=== PATIENT | male | born 1945 | race Caucasian/White ===

== ENCOUNTER 2019-03-15 04:44 | Emergency (ER) | payer OTHER ==
[2019-03-15 05:05] LABS: ADD MAN DIFF? NO
[2019-03-15 05:06] LABS: BASOPHILS % 0.2 % (0.0-2.0); EOSINOPHILS # 0.2 10^3/ul (0.0-0.5); EOSINOPHILS % 1.2 % (0.0-7.0); HEMATOCRIT 39.6 % (42.0-52.0); HEMOGLOBIN 13.4 g/dl (14.0-18.0); LYMPHOCYTES # 1.6 10^3/ul (0.8-2.9); LYMPHOCYTES % 10.8 % (15.0-51.0); MEAN CORPUSCULAR HGB CONC 33.8 g/dl (32.0-37.0); MEAN CORPUSCULAR VOLUME 94.5 fl (82.0-101.0); MEAN PLATELET VOLUME 11.8 fl (7.4-10.4); MONOCYTE # 0.8 10^3/ul (0.3-0.9); MONOCYTES % 5.5 % (0.0-11.0); PLATELET COUNT 164 10^3/UL (140-415); RED BLOOD COUNT 4.19 10^6/ul (4.70-6.10); RED CELL DISTRIBUTION WIDTH 13.7 % (11.5-14.5)
[2019-03-15 05:06] LABS: WHITE BLOOD COUNT 14.7 10^3/ul (4.8-10.8)
[2019-03-15 05:25] LABS: ALANINE AMINOTRANSFERASE 45 IU/L (13-69); ALBUMIN 4.6 g/dl (3.3-4.9); ALBUMIN/GLOBULIN RATIO 1.84; ALKALINE PHOSPHATASE 52 IU/L (42-121); ANION GAP 10 (5-13); ASPARTATE AMINO TRANSFERASE 34 IU/L (15-46); BILIRUBIN,INDIRECT 0.4 mg/dl (0-1.1); BILIRUBIN,TOTAL 0.4 mg/dl (0.2-1.3); BLOOD UREA NITROGEN 27 mg/dl (7-20); CALCIUM 9.7 mg/dl (8.4-10.2); CARBON DIOXIDE 32 mmol/L (21-31); CHLORIDE 97 mmol/L (97-110); CREATININE 0.72 mg/dl (0.61-1.24); GLUCOSE 228 mg/dl (70-220); LIPASE 185 U/L (23-300); POTASSIUM 4.3 mmol/L (3.5-5.1); SODIUM 139 mmol/L (135-144); TOTAL PROTEIN 7.1 g/dl (6.1-8.1)
[2019-03-15 05:36] LABS: TROPONIN-I < 0.012 ng/ml (0.000-0.120)
[2019-03-15] MEDS: morphine 2 MG INJ IV (06:38)
[2019-03-15] MEDS: ONDANSETRON 4 MG INJ IV (06:38)
[2019-03-15] MEDS: SOD CHLORIDE 0.9% 1,000 ML IV (06:38)
[2019-03-15] MEDS: IOHEXOL 300MG/ML 150 ML BTL (10:53)
== END 2019-03-15 15:24 | disposition home or self-care (01) ==
LOC: E/R 04:44
DX: K80.20 Calculus of gallbladder without cholecystitis without obstruction (principal); E11.9 Type 2 diabetes mellitus without complications; K56.7 Ileus, unspecified; Z79.82 Long term (current) use of aspirin; Z79.84 Long term (current) use of oral hypoglycemic drugs
CPT/HCPCS: 36415; 71045; 74176; 74250; 80053; 82962; 83690; 84484; 85025; 93005; 96374; 96375; 99285-25